=== PATIENT | female | born 1985 | race African-American/Black ===

== ENCOUNTER 2018-05-07 04:18 | Emergency (ER) | payer MEDICAID ==
[~2018-05-07] VITALS: Ht 157.5 cm; Wt 59.0 kg
[2018-05-07] MEDS ORDERED: LORAZEPAM 1MG TABLET PO ONE (05:30)
[2018-05-07 07:59] VITALS: BP 106/67
== END 2018-05-07 08:06 | disposition home or self-care (01) ==
LOC: ER 05:24
DX: F41.9 Anxiety disorder, unspecified (principal); G47.00 Insomnia, unspecified; F32.9 Major depressive disorder, single episode, unspecified; Z88.8 Allergy status to other drugs, medicaments and biological substances; Z88.1 Allergy status to other antibiotic agents
CPT/HCPCS: 81025; 99284